=== PATIENT | female | born 1980 | race Hispanic/Latino ===

== ENCOUNTER 2019-03-16 01:03 | Emergency (ER) | payer SELFPAY ==
--- NOTE | ~2019-03-16 | XR_ITS ---
XR elbow LT 2V 03/16/2019 01:56 INDICATION: Left elbow pain for 2 weeks PROCEDURE: 2 view chest COMPARISON: No prior studies for comparison. FINDINGS: Fracture, dislocation or subluxation is not identified. No joint effusion. The soft tissues appear within normal limits. No foreign bodies are identified. IMPRESSION: 1: NO ACUTE BONE OR JOINT ABNORMALITY IDENTIFIED. Reviewed, dictated and finalized at location A. 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
[2019-03-16 01:07] VITALS: BP 145/100; PULSE 112; RESP 20; TEMP 36.5; O2SAT 99
--- NOTE | 2019-03-16 01:22 | ED.UPPEXIN ---
HPI - Extremity Injury (Upper) General Chief Complaint: Extremity Injury, Upper Stated Complaint: L ARM PAIN Time Seen by Provider: 03/16/19 01:07 Source: patient Mode of arrival: ambulatory Limitations: no limitations History of Present Illness HPI narrative: The pt is a 39 y/o female who presents to the ED with c/o constant lt elbow pain that began 2 weeks ago. The pt states that she first noticed the pain when she was trying to pull someone up at work and felt something pop in her lt elbow. She has been having trouble lifting things that are not heavy and has been wrapping her elbow with an JEFF wrap, which helps her pain. The pt took codeine before work tonight with little relief of sx. She states that her pain radiates to her lt shoulder and lt fingers. The pt has a PMHx of asthma. complaint: injury to: elbow (lt elbow pain) Onset (ago): week(s) (2) Relieving factors: other (JEFF wrap) Associated symptoms: other (none) Related Data Home Medications Medication Instructions Recorded Confirmed acetaminophen-codeine 1 tablet 03/16/19 cyclobenzaprine mg 03/16/19 Allergies Allergy/AdvReac Type Severity Reaction Status Date / Time apple Allergy Mild Rash Verified 03/16/19 01:09 [place] Allergy Mild RASH Uncoded 03/16/19 01:09 Review of Systems Review of Systems: All systems reviewed & are unremarkable except as noted in HPI and below Musculoskeletal: Musculoskeletal: Reports other (lt elbow pain) FOR[facility]LY [facility] Past Medical History Medical History (Updated 03/16/19 @ 02:27 by Willian Delgado MD) Asthma Back pain Enlarged liver GERD (gastroesophageal reflux disease) Surgical History Surgical History (Updated 03/16/19 @ 01:59 by Essence Ng) H/O tubal ligation Hx of section Hx of cholecystectomy Family History Family History (Updated 08/21/13 @ 14:35 by DOCTOR UNKNOWN) Other Asthma Social History Social History (Updated 03/16/19 @ 01:59 by Essence Ng) Smoking status: Never smoker Gender identity (if verbalized by the patient): Female Exam Const: General: healthy appearing and no acute distress Limitations: no limitations HENMT: Mouth: Yes lip normal and Yes moist mucous membranes Eyes: Conjunctivae: conjunctivae normal Pupils: Equal, round and reactive pupils present Resp: Effort & Inspection: normal respiratory effort Auscultation: clear to auscultation bilaterally Cardio: Rate: regular rate Rhythm: regular rhythm GI: GI Palp: Yes Soft to palpation and No Tenderness to palpation present (GI) Auscultation: normal bowel sounds Back/Spine/Pelvis: Back: other (full ROM) Skin: General skin exam: normal color, dry skin and other (warm) Neuro: General: patient oriented x3 Speech: normal speech Extrem: General: full ROM Other: tenderness to medial and lateral malleoli over lt elbow with no erythema or swelling Psych: Mental Status: mental status grossly normal Affect: normal affect Course Vital Signs Vital signs: Vital Signs Temperature 36.5 C 03/16/19 01:07 Pulse Rate 112 H 03/16/19 01:07 Respiratory Rate 20 03/16/19 01:07 Blood Pressure 145/100 H 03/16/19 01:07 Pulse Oximetry 99 03/16/19 01:07 Temperature 36.5 C 03/16/19 01:07 Pulse Rate 88 03/16/19 02:34 Respiratory Rate 18 03/16/19 02:34 Blood Pressure 129/77 03/16/19 02:34 Pulse Oximetry 98 03/16/19 02:34 MDM - Extremity Injury (Upper) Imaging Data Attestation: I personally reviewed and interpreted this imaging study as follows: My impression: Negative elbow x-ray Discharge Plan Discharge Clinical Impression: Tendinitis of left elbow Patient Disposition: Home, Self-Care Condition: Stable Instructions: Tendinitis (ED) Prescriptions: New ibuprofen 600 mg tablet 600 mg PO QID PRN (Reason: pain) Qty: 60 RF: 0 methylprednisolone [Medrol (Neftaly)] 4 mg tablets,dose pack See Rx Instructions .ROUTE .COMPLEX Qty: 21 RF: 0
[2019-03-16] MEDS: KETOROLAC (*BKC) 60 MG/2 ML VIAL IM (01:56)
[2019-03-16 02:34] VITALS: BP 129/77; PULSE 88; RESP 18; O2SAT 98
== END 2019-03-16 02:36 | disposition home or self-care (01) ==
PROVIDERS: Emergency Provider Emergency Medicine; PCP Emergency Medicine
DX: J45.909 Unspecified asthma, uncomplicated (principal); K21.9 Gastro-esophageal reflux disease without esophagitis; M77.9 Enthesopathy, unspecified
CPT/HCPCS: 73070; 96372; 99284; J1100; J1885

== ENCOUNTER 2019-06-12 06:13 | Emergency (ER) | payer SELFPAY ==
--- NOTE | ~2019-06-12 | CT_ITS ---
EXAMINATION: CT abdomen pelvis w con DATE: 06/12/2019 08:19 INDICATION: Abdominal pain TECHNIQUE: Computed tomography (CT) of the abdomen and pelvis was performed with 100 cc Omnipaque 350 intravenous contrast. Automated exposure control and iterative reconstruction technique were employe d. Exam dose: 937.59 mGy-cm total exam DLP. COMPARISON: 01/05/2015 CT abdomen pelvis FINDINGS: The lung bases are clear of consolidation. Heart size is within normal range. No pericardia l or pleural effusion. Small sliding hiatal hernia. Diffuse hepatic steatosis. Status post cholecystectomy. No bile duct or pancreatic duct dilatation. No pancreatic mass lesion or calcification. Normal splenic size. Normal morphology of the adrenal glands. Approximately 3.5 mm nonobstructing right renal calculus. 11 mm hypo-enhancing mass of left kidney, not evident on 01/05/2015 noncontrast examination. Consider MR imaging for further evaluation or follow-up CT imaging in 6 months.. No renal space occupying mass lesion is noted otherwise. No ureteral calculus or hydroureteronephrosis. The urinary bladder is unremarkable. The uterus is mil dly enlarged but the uterus and adnexal areas are otherwise unremarkable. Normal caliber of the abdominal aorta. No intraperitoneal or retroperitoneal or pelvic mass lesion, a denopathy or ascites. Normal appendix. No bowel obstruction, bowel wall thickening, pneumatosis or intraperitoneal free air . No suspicious osteolytic or osteoblastic lesions are noted. Diffuse idiopathic skeletal hyperostosis of the lower thoracic spine. IMPRESSION: Small sliding hiatal hernia Diffuse hepatic steatosis Status post cholecystectomy Approximately 3.5 mm nonobstructing right renal calculus Indeterminate 11 mm hypoenhancing mass of left kidney, not evident on 01/05/2015 similar consider MR imaging of the kidney or at minimum a [address] abdomen follow-up Reviewed, dictated and finalized at [facility]. Reviewed, dictated and finalized at location A. IMPRESSION: Small sliding hiatal hernia Diffuse hepatic steatosis Status post cholecystectomy Approximately 3.5 mm nonobstructing right renal calculus Indeterminate 11 mm hypoenhancing mass of left kidney, not evident on 5 similar consider MR imaging of the kidney or at minimum a [address] abdomen follow-up
--- NOTE | ~2019-06-12 | US_ITS ---
EXAMINATION: US right upper quadrant DATE: 06/12/2019 07:39 INDICATION: Abdominal pain. Nausea. TECHNIQUE: Multiple grayscale and Doppler ultrasound images of the abdomen were obtained. COMPARISON: CT abdomen and pelvis 01/05/2015 FINDINGS: The visualized portions of the head, body, and tail of the pancreas are normal. There is di ffuse hepatic steatosis. No liver surface nodularity. There is normal flow in main portal vein. The g allbladder is absent. The common duct is normal and measures 5 mm. IMPRESSION: 1. Diffuse hepatic steatosis. Reviewed, dictated and finalized at location A.
[2019-06-12 06:13] VITALS: BP 140/90; PULSE 110; RESP 16; TEMP 36.4; O2SAT 100
--- NOTE | 2019-06-12 06:29 | ED.ABDPAIN ---
HPI - Abdominal Pain General Chief Complaint: Abdominal Pain Stated Complaint: abd pain Time Seen by Provider: 06/12/19 06:19 Source: RN notes reviewed History of Present Illness HPI narrative: Patient presents to emergency department from home for abdominal pain. Patient states pain is been intermittent for the past week. Pain is located in the right upper quadrant and radiates around to the back. Pain is described as sharp and stabbing associated with nausea and vomiting. Patient states the pain is worse when she eats. Denies any fevers or chills chest pain shortness of breath diarrhea or any other symptoms Related Data Home Medications Medication Instructions Recorded Confirmed cyclobenzaprine 10 mg PO BID 03/16/19 topiramate 25 mg PO HS 06/12/19 06/12/19 Allergies Allergy/AdvReac Type Severity Reaction Status Date / Time apple Allergy Mild Rash Verified 06/12/19 06:28 [place] Allergy Mild RASH Uncoded 06/12/19 06:28 Review of Systems Review of Systems: Narrative: Gen.: Denies fevers or chills ENT: Denies congestion Respiratory: Denies shortness of breath or cough CV: Denies chest pain or palpitations GI: See HPI denies burning, urgency, frequency or hematuria Musculoskeletal: Denies back pain or muscle pain Neuro: Denies numbness, tingling, weakness or focal weakness Skin: Denies rash Except as documented, all other systems reviewed and negative PMFSH Past Medical History Medical History Asthma Back pain Enlarged liver GERD (gastroesophageal reflux disease) Surgical History Surgical History (Updated 03/16/19 @ 01:59 by Essence Ng) H/O tubal ligation Hx of section Hx of cholecystectomy Family History Family History (Updated 08/21/13 @ 14:35 by DOCTOR UNKNOWN) Other Asthma Social History Social History Smoking status: Never smoker Gender identity (if verbalized by the patient): Female Exam Narrative: Exam Narrative: APPEARANCE: No acute distress, nontoxic, resting in bed HEENT: Normocephalic, atraumatic, OMM RESPIRATORY: No respiratory distress, clear to auscultation bilaterally with no rhonchi wheezing or rales CARDIOVASCULAR: RRR s murmur ABDOMINAL: Obese, soft, nondistended, tender palpation epigastric and right upper quadrant, no tenderness right lower quadrant, left lower quadrant left upper quadrant, no rebound or guarding MUSCULOSKELETAl: Moves all extremities. No clubbing, cyanosis or edema. NEURO: Awake and alert. Following commands, speech normal, no focal deficits SKIN:: Warm, dry. Normal Color PSYCHIATRIC: Normal affect/mood Course Course Emergency Course: Called and discussed with Dr. Hernandez patient CT results. Discussed renal mass and will follow as an outpatient Patient states that they are feeling much better at this time. States abdominal pain has resolved. Repeat abdominal exam shows the patient's abdomen to be soft and nontender. Discussed with patient results of workup and diagnosis. Discussed need for follow-up with primary care physician, reasons to return to the emergency department in proper use of medication. Patient understands and agrees to current treatment plan. Discussed renal mass and need for follow-up as an outpatient Vital Signs Vital signs: Vital Signs Temperature 97.6 F 06/12/19 06:13 Pulse Rate 110 H 06/12/19 06:13 Respiratory Rate 16 06/12/19 06:13 Blood Pressure 140/90 06/12/19 06:13 Pulse Oximetry 100 06/12/19 06:13 Temperature 98.1 F 06/12/19 08:55 Pulse Rate 85 06/12/19 08:55 Respiratory Rate 16 06/12/19 06:13 Blood Pressure 131/81 06/12/19 08:55 Pulse Oximetry 100 06/12/19 08:55 MDM - Abdominal Pain MDM Narrative Medical decision making narrative: Patient's abdomen is soft without significant pain or signs of surgical abdomen on serial exams. Lab and x-ray evaluation
[2019-06-12] MEDS: SODIUM CHLORIDE 0.9% IV 1,000 ML 999 ML IV CONT (06:44)
[2019-06-12] MEDS: ONDANSETRON INJ 4 MG/2 ML VIAL IV PUSH (06:46)
[2019-06-12] MEDS: KETOROLAC 30 MG/ML VIAL (*BKC) IV PUSH (06:46)
[2019-06-12 07:02] LABS: Basophils Absolute Auto 0.1 K/mm3 (0.0-0.1); Basophils Percent Auto 0.9 % (0.2-1.2); Eosinophils Absolute Auto 0.4 K/mm3 (0-0.3); Eosinophils Percent Auto 3.2 % (0-4.4); Hematocrit 42.6 % (37.0-47.0); Hemoglobin 14.1 g/dL (12.0-15.0); Immature Granulocyte Absolute 0.19 K/mm3 (0.00-0.031); Immature Granulocyte Percent A 1.4 % (0-0.5); Lymphocytes Absolute Auto 3.83 K/mm3 (0.9-3.2); Lymphocytes Percent Auto 27.5 % (18.3-44.2); Mean Corpuscular HGB Conc 33.1 g/dl (32-36); Mean Corpuscular Hemoglobin 29.7 pg (26-34); Mean Corpuscular Volume 89.7 fl (80-100); Mean Platelet Volume 9.4 fl (7.4-10.4); Monocytes Absolute Auto 0.7 K/mm3 (0.1-0.6); Monocytes Percent Auto 5.2 % (2.6-8.5); Neutrophils Absolute Auto 8.6 K/mm3 (1.3-6.7); Neutrophils Percent Auto 61.8 % (45.5-73.1); Platelet Count Result 535 k/mm3 (150-375); Red Blood Count 4.75 M/mm3 (4.2-5.4); Red Cell Distribution Width 12.5 % (11.5-14.5)
[2019-06-12 07:08] LABS: Add Urine Microscopic? YES; Appearance Urine Clear (Clear); Bacteria Urine Trace /hpf; Bilirubin Urine Negative (Negative); Blood Urine 1+ (Negative); Color Urine Yellow (Yellow); Glucose Urine UA Negative (Negative); Ketones Urine Negative (Negative); Leukocyte Esterase Ur Negative LEU/UL (Negative); Mucus Urine Rare /lpf; Nitrate Urine Negative (Negative); Protein Urine Negative (Negative); RBC Urine 0-2 /hpf (0-2); Specific Grav Ur 1.017 (1.001-1.035); Squamous Epithelial Cell Urine Few /hpf (Few); Urobilinogen Urine Negative mg/dL (<2.0); WBC Urine 0-3 /hpf
[2019-06-12 07:48] LABS: Alanine Aminotransferase 93 U/L (4-35); Albumin Level 4.3 g/dL (3.5-5.1); Alkaline Phosphatase 90 U/L (38-126); Aspartate Amino Transferase 59 U/L (14-36); Bilirubin,Total 0.2 mg/dL (0.2-1.3); Blood Urea Nitrogen 9 mg/dL (7-17); Calcium 9.2 mg/dL (8.4-10.2); Carbon Dioxide 25 mmol/L (22-30); Chloride 106 mmol/L (98-107); Estimated CRCL calculation 126 ml/min; Estimated Glomerular Filt Rate > 60; Glucose 92 mg/dL (65-105); Lipase 58 U/L (23-300); Potassium 4.2 mmol/L (3.4-5.0); Sodium 138 mmol/L (137-145)
[2019-06-12 08:55] VITALS: BP 131/81; PULSE 85; TEMP 36.7; O2SAT 100
[2019-06-12] MEDS: PANTOPRAZOLE SODIUM IV 40 MG VIAL IV PUSH (09:06)
[2019-06-12 09:15] VITALS: BP 136/102; PULSE 97; RESP 16
== END 2019-06-12 09:18 | disposition home or self-care (01) ==
PROVIDERS: Emergency Provider Emergency Medicine; PCP Emergency Medicine
DX: R10.11 Right upper quadrant pain (principal); J45.909 Unspecified asthma, uncomplicated; K21.9 Gastro-esophageal reflux disease without esophagitis; K76.0 Fatty (change of) liver, not elsewhere classified; N20.0 Calculus of kidney; N28.89 Other specified disorders of kidney and ureter
CPT/HCPCS: 36415; 74177; 76705; 80053; 81001; 81025; 83690; 85025; 96361; 96374; 96375; 99284; C9113; J1885; J2405; J7030; Q9967

== ENCOUNTER 2019-07-09 14:23 | Outpatient (CLI) | payer MEDICAID, SELFPAY ==
--- NOTE | ~2019-07-09 | MM_ITS ---
EXAMINATION: MM screening aramis BI w enrrique HISTORY: Screening mammogram TECHNIQUE: Craniocaudal and mediolateral oblique 3-D tomosynthesis images were obtained and synthetic 2-D images were generated. CAD analysis was submitted and interpreted. COMPARISON: No prior mammogram is available for comparison at this institution. BREAST PARENCHYMAL COMPOSITION: The breasts are heterogeneously dense, which may obscure small masses . FINDINGS: There is no evidence of suspicious mass, calcification, or architectural distortion to sugg est malignancy in either breast. There has been no suspicious interval change. IMPRESSION: 1. No mammographic evidence of malignancy. 2. Recommend routine screening mammography in one year. BI-RADS Category 1: Negative Reviewed, dictated and finalized at location A.
== END 2019-07-09 14:24 | disposition home or self-care (01) ==
LOC: ANHIMG 14:26
PROVIDERS: PCP Emergency Medicine; Visit Provider Emergency Medicine
DX: Z12.31 Encounter for screening mammogram for malignant neoplasm of breast (principal)
CPT/HCPCS: 77063; 77067

== ENCOUNTER 2019-07-29 19:32 | Outpatient (CLI) | payer MEDICAID, SELFPAY ==
--- NOTE | ~2019-07-29 | MR_ITS ---
EXAMINATION: MR abdomen wo/w con INDICATION: Left kidney lesion TECHNIQUE: Coronal SSFSE ARC, WATER:coronal LAVA-FLEX, Coronal 2D FIESTA FatSat, Axial SSFSE BH ARC, Axial 3D DualEcho BH, Axial SSFSE-IR, Axial DWI b=500, Axial 2D FIESTA FatSat, pre and dynamic postco ntrast Axial LAVA ARC, postcontrast Coronal In and Opposed phase LAVA FLEX COMPARISON: CT, 06/12/2019 CONTRAST: Multihance, 18 cc FINDINGS: There is an 11 mm T1 hypointense, T2 hyperintense, nonenhancing lesion in the left kidney u pper pole, consistent with a simple cyst. No suspicious renal mass is identified. There is loss of he patic parenchymal signal on opposed phase imaging, consistent with hepatic steatosis. The spleen, caceres creas, and adrenal glands are normal. The gallbladder is surgically absent. There are no dilated loop s of bowel. No pathologically enlarged abdominal lymph nodes are identified. IMPRESSION: 1. Simple cyst of the left kidney corresponding to the indeterminate lesion on recent CT. No suspicio us renal mass identified. 2. Diffuse hepatic steatosis. Reviewed, dictated and finalized at location F. IMPRESSION: 1. Simple cyst of the left kidney corresponding to the indeterminate lesion on recent CT. No suspicious renal mass identified. 2. Diffuse hepatic steatosis.
--- NOTE | ~2019-07-29 | MR_ITS ---
EXAMINATION: MR brain/brain stem wo con DATE: 07/29/2019 20:09 INDICATION: 3 years generalized headaches TECHNIQUE: Magnetic resonance imaging (MRI) of the brain and brainstem was performed without intraven ous contrast. Sequences included sagittal and axial T1-weighted SE, axial diffusion-weighted FS SE, a xial T2*-weighted GRE, axial T2-weighted FLAIR, and axial T2-weighted FSE. Apparent diffusion coeffic ient (ADC) maps were created. COMPARISON: None. FINDINGS: There are no areas of restricted diffusion to suggest acute infarction. No intracranial hemorrhage or abnormal intracranial mass lesion. There are no intraparenchymal signal abnormalities seen on the ot her pulse sequences. The ventricles are symmetric and normal in size. There are no abnormal extra-axi al fluid collections. Flow voids are seen in the cerebral arteries on the T2-weighted sequences consi stent with their expected patency. Mucosal thickening in the right frontal, bilateral ethmoid and max illary sinuses. Visualized orbits and soft tissues are unremarkable. IMPRESSION: 1. Normal brain. No acute intracranial process. 2. Sinus disease. Reviewed, dictated and finalized at location A.
[2019-07-29 20:22] LABS: Estimated Glomerular Filt Rate > 60
== END 2019-07-29 19:33 | disposition home or self-care (01) ==
PROVIDERS: PCP Emergency Medicine; Visit Provider Emergency Medicine
DX: K76.0 Fatty (change of) liver, not elsewhere classified (principal); N28.1 Cyst of kidney, acquired; J32.9 Chronic sinusitis, unspecified
CPT/HCPCS: 36415; 70551; 74183; A9577

== ENCOUNTER 2019-11-06 18:15 | Emergency (ER) | payer OTHER, SELFPAY ==
--- NOTE | ~2019-11-06 | XR_ITS ---
EXAMINATION: XR chest 1V portable INDICATION: Shortness of breath, COVID 19 positive TECHNIQUE: Portable AP chest at 1922 hours COMPARISON: 02/08/2012 FINDINGS: The lung volumes are low. No definite airspace opacities are identified. There is no pleura l effusion or pneumothorax. The cardiomediastinal silhouette is normal. Surgical clips in the right u pper quadrant are likely from prior cholecystectomy. IMPRESSION: 1. No acute cardiopulmonary abnormality. Reviewed, dictated and finalized at location A.
[2019-11-06 18:40] VITALS: BP 139/85; PULSE 81; RESP 15; TEMP 37; O2SAT 99
[2019-11-06 18:44] VITALS: PULSE 88
[2019-11-06 18:46] VITALS: BP 139/93; PULSE 75; RESP 13; O2SAT 99
--- NOTE | 2019-11-06 18:58 | ECG_ITS ---
Measurements Intervals [place] Rate: 77 P: -2 NE: 180 QRS: -5 QRSD: 83 T: 1 QT: 352 QTc: 399 Interpretive Statements SINUS RHYTHM LOW QRS VOLTAGE IN PRECORDIAL LEADS BORDERLINE R WAVE PROGRESSION, ANTERIOR LEADS BORDERLINE ST-T WAVE ABNORMALITY- ANTEROLAT/INF LEADS BASELINE WANDER- III, AVR, AVF, V1, V4-V6 BORDERLINE ECG Electronically Signed On 11-07-2019 6:48:11 CDT by Elvis Robertson D.O.
--- NOTE | 2019-11-06 19:03 | ED.SOB ---
HPI - SOB/Dyspnea General Chief Complaint: Shortness of Breath/Dyspnea <LORENZO Gabriel Last Filed: 11/06/19 21:27> Stated Complaint: covid+, sob <LORENZO Gabriel Last Filed: 11/06/19 21:27> Time Seen by Provider: 11/06/19 18:35 <LORENZO Gabriel Last Filed: 11/06/19 21:27> Source: patient <LORENZO Gabriel Last Filed: 11/06/19 21:27> Mode of arrival: ambulatory <LORENZO Gabriel Last Filed: 11/06/19 21:27> Limitations: no limitations <LORENZO Gabriel Last Filed: 11/06/19 21:27> History of Present Illness HPI Narrative: This is a 39-year-old female that presents to the emergency department for shortness of breath x1 week. Associated with cough, myalgias and headache. Also reports chest pain with coughing. 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 Reports she tested positive on the . Denies fever. <LORENZO Gabriel Last Filed: 11/06/19 21:27> Related Data Home Medications: Home Medications Medication Instructions Recorded Confirmed cyclobenzaprine 10 mg PO BID 03/16/19 topiramate 25 mg PO HS 06/12/19 06/12/19 <LORENZO Gabriel Last Filed: 11/06/19 21:27> Allergies/Adverse Reactions: Allergies Allergy/AdvReac Type Severity Reaction Status Date / Time apple Allergy Mild Rash Verified 06/12/19 06:28 [place] Allergy Mild RASH Uncoded 06/12/19 06:28 <LORENZO Gabriel Last Filed: 11/06/19 21:27> Review of Systems Review of Systems: Narrative: CONSTITUTIONAL: Denies fever ENT: Reports congestion. Denies sore throat, or otalgia. CARDIOVASCULAR: Reports chest pain RESPIRATORY: Reports cough and dyspnea. MUSCULOSKELETAL: Reports back pain, and myalgia. <LORENZO Gabriel Last Filed: 11/06/19 21:27> All systems reviewed & are unremarkable except as noted in HPI and below <LORENZO Gabriel Last Filed: 11/06/19 21:27> [facility] Surgical History Surgical History: Surgical History (Updated 03/16/19 @ 01:59 by Essence Ng) H/O tubal ligation Hx of section Hx of cholecystectomy <Rochelle Perea PA-C - Last Filed: 11/06/19 21:27> Family History Family History: Family History (Updated 08/21/13 @ 14:35 by DOCTOR UNKNOWN) Other Asthma <LORENZO Gabriel Last Filed: 11/06/19 21:27> Social History Social History: Social History Smoking status: Never smoker Gender identity (if verbalized by the patient): Female <LORENZO Gabriel Last Filed: 11/06/19 21:27> Exam Narrative: Exam Narrative: GENERAL: Well-appearing, obese, and in no acute distress. HEAD: Normocephalic, atraumatic. EYES: EOMI. ENT: Nares clear, no rhinorrhea or epistaxis. Mucous membranes moist. Oropharynx without tonsillar hypertrophy exudate or other lesions. Bilateral TMs pearly fitzgerald non-bulging NECK: Supple. No adenopathy or masses. CHEST: Clear to auscultation. No respiratory distress. No wheezes rales or rhonchi HEART: Regular rate and rhythm. No murmur heard. Normal peripheral pulses. EXTREMITIES: Normal range of motion. No edema. SKIN: Warm, dry, no rash. NEURO: No focal deficits. Alert and oriented x3. PSYCH: Normal mood and affect <LORENZO Gabriel Last Filed: 11/06/19 21:27> Course Vital Signs Vital signs: Vital Signs Temperature 37.0 C 11/06/19 18:40 Pulse Rate 81 11/06/19 18:40 Respiratory Rate 15 11/06/19 18:40 Blood Pressure 139/85 11/06/19 18:40 Pulse Oximetry 99 11/06/19 18:40 Temperature 37.0 C 11/06/19 18:40 Pulse Rate 88 11/06/19 20:50 Respiratory Rate 16 11/06/19 20:50 Blood Pressure 122/98 H 11/06/19 20:50 Pulse Oximetry 99 11/06/19 20:50 <Rochelle Perea PA-C - Last Filed: 11/06/19 21:27> Vital Signs Temperature 37.0 C 11/06/19 18:40 Pulse Rate 81 11/06/19 18:40 Respirat
[2019-11-06 19:15] VITALS: BP 131/83; PULSE 75; RESP 16; O2SAT 98
[2019-11-06] MEDS: ALBUTEROL SULFATE (*SP) AEROSOL 1 PUFF 2 PUFF INHALATION (19:19)
[2019-11-06 19:22] VITALS: PULSE 77; RESP 20
[2019-11-06 19:41] LABS: Basophils Absolute Auto 0.1 K/mm3 (0.0-0.1); Basophils Percent Auto 0.7 % (0.2-1.2); Eosinophils Absolute Auto 0.5 K/mm3 (0-0.3); Eosinophils Percent Auto 4.4 % (0-4.4); Hematocrit 42.2 % (37.0-47.0); Hemoglobin 14.4 g/dL (12.0-15.0); Immature Granulocyte Absolute 0.16 K/mm3 (0.00-0.031); Immature Granulocyte Percent A 1.4 % (0-0.5); Lymphocytes Percent Auto 33.8 % (18.3-44.2); Mean Corpuscular HGB Conc 34.1 g/dl (32-36); Mean Corpuscular Hemoglobin 29.4 pg (26-34); Mean Corpuscular Volume 86.1 fl (80-100); Monocytes Absolute Auto 0.8 K/mm3 (0.1-0.6); Monocytes Percent Auto 6.6 % (2.6-8.5); Neutrophils Absolute Auto 6.3 K/mm3 (1.3-6.7); Neutrophils Percent Auto 53.1 % (45.5-73.1); Platelet Count Result 523 k/mm3 (150-375); Red Cell Distribution Width 12.6 % (11.5-14.5); White Blood Count 11.9 K/mm3 (4.5-10.0)
[2019-11-06 19:51] LABS: Prothrombin Time 12.5 Seconds (11.1-14.7)
[2019-11-06 19:52] LABS: Partial Thromboplastin Time 28.6 SECONDS (22.3-36.8)
[2019-11-06 19:53] LABS: Alanine Aminotransferase 108 U/L (4-35); Albumin Level 4.4 g/dL (3.5-5.1); Alkaline Phosphatase 85 U/L (38-126); Anion Gap 8 mmol/L (8-16); Aspartate Amino Transferase 74 U/L (14-36); Bilirubin,Total 0.5 mg/dL (0.2-1.3); Blood Urea Nitrogen 10 mg/dL (7-17); Calcium 10.9 mg/dL (8.4-10.2); Carbon Dioxide 28 mmol/L (22-30); Chloride 103 mmol/L (98-107); Estimated CRCL calculation 110 ml/min; Estimated Glomerular Filt Rate > 60; Glucose 116 mg/dL (65-105); Lactate Dehydrogenase 534 U/L (313-618); Lactic Acid Reflex 1.3 mmol/L (0.7-2.1); Potassium 4.3 mmol/L (3.4-5.0); Sodium 139 mmol/L (137-145)
[2019-11-06 19:58] LABS: D Dimer 0.27 ug/mL (<0.48)
[2019-11-06 20:06] LABS: Troponin I < 0.012 ng/mL (0.000-0.034)
[2019-11-06 20:50] VITALS: BP 122/98; PULSE 88; RESP 16; O2SAT 99
== END 2019-11-06 21:36 | disposition home or self-care (01) ==
PROVIDERS: Physician Assistant; Emergency Provider Emergency Medicine
DX: U07.1 COVID-19 (principal); R94.31 Abnormal electrocardiogram [ECG] [EKG]
CPT/HCPCS: 36415; 71045; 80053; 82728; 83605; 83615; 84484; 85025; 85380; 85610; 85730; 93005; 99284; A9270

== ENCOUNTER 2022-01-20 19:51 | Emergency (ER) | payer OTHER, SELFPAY ==
--- NOTE | ~2022-01-20 | CT_ITS ---
EXAMINATION: CT abdomen pelvis wo con DATE: 01/21/2022 02:33 INDICATION: Urinary urgency and right flank pain radiating into the groin TECHNIQUE: Computed tomography (CT) of the abdomen and pelvis was performed without intravenous contr ast. Automated exposure control and iterative reconstruction technique were employed. The dose-length product was 1122.67 mGy-cm. COMPARISON: 06/12/2019 FINDINGS: Mild right middle lobe and lingular atelectasis. Heart size is normal. No pericardial or pleural effu herbie. Diffuse hepatic steatosis. Cholecystectomy clips the gallbladder fossa. Spleen, pancreas and bi lateral adrenal glands are normal. Bilateral nephrolithiasis with 3 nonobstructing stones in the left kidney and 2 right renal stones, one measuring 2 mm a lower pole calyx and a 9 mm obstructing stone at the right ureteropelvic junction. This results in mild right hydronephrosis. No ureteral stones. B owels including the appendix are normal. Bladder, uterus and adnexa are unremarkable. No free intrape ritoneal gas or fluid. No pathologically enlarged abdominal or pelvic lymphadenopathy. Bones are unre markable. IMPRESSION: 1. Bilateral nephrolithiasis with obstructing 9 mm stone at the right ureteropelvic junction with mil d hydronephrosis. Reviewed, dictated and finalized at location A. 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 Bilateral nephrolithiasis with obstructing 9 mm stone at the right ureterope lvic junction with mild hydronephrosis.
--- NOTE | ~2022-01-20 | XR_ITS ---
EXAMINATION: XR abdomen/kub 1V DATE: 01/21/2022 04:57 INDICATION: Right UPJ stone TECHNIQUE: A supine view of the abdomen on 2 radiographs was obtained. COMPARISON: CT dated 01/21/2022 FINDINGS: Bilateral nephrolithiasis with 10 mm stone at the right ureteropelvic junction. Additional 2 mm stone at a lower pole of the right kidney and 2 mm and 3 mm stones at the mid and lower left kidney respec tively. An additional 1 mm stone seen on CT at the lower pole of the left kidney is too small to visu nathalia. There are few phleboliths in the pelvis. Normal bowel gas pattern. Lung bases are clear. Heart size is normal. Cholecystectomy clips in the right upper quadrant. IMPRESSION: 1. Bilateral nephrolithiasis including the previously noted 9 mm obstructing stone at the right urete ropelvic junction. Reviewed, dictated and finalized at location A. ORATE TUTOR IMPRESSION: 1. Bilateral nephrolithiasis including the previously noted [address] one at the right ureteropelvic junction.
[2022-01-20 19:54] VITALS: BP 163/95; PULSE 104; RESP 16; TEMP 36.3; O2SAT 98
[2022-01-20 20:19] LABS: Basophils Absolute Auto 0.1 K/mm3 (0.0-0.1); Basophils Percent Auto 0.9 % (0.2-1.2); Eosinophils Absolute Auto 0.4 K/mm3 (0-0.3); Eosinophils Percent Auto 3.4 % (0-4.4); Hematocrit 43.8 % (37.0-47.0); Hemoglobin 14.5 g/dL (12.0-15.0); Immature Granulocyte Absolute 0.11 K/mm3 (0.00-0.031); Immature Granulocyte Percent A 0.9 % (0-0.5); Lymphocytes Absolute Auto 3.01 K/mm3 (0.9-3.2); Lymphocytes Percent Auto 23.6 % (18.3-44.2); Mean Corpuscular HGB Conc 33.1 g/dl (32-36); Mean Corpuscular Hemoglobin 29.5 pg (26-34); Mean Platelet Volume 8.4 fl (7.4-10.4); Monocytes Absolute Auto 0.9 K/mm3 (0.1-0.6); Monocytes Percent Auto 7.1 % (2.6-8.5); Neutrophils Absolute Auto 8.2 K/mm3 (1.3-6.7); Neutrophils Percent Auto 64.1 % (45.5-73.1); Platelet Count Result 569 k/mm3 (150-375); Red Blood Count 4.92 M/mm3 (4.2-5.4); Red Cell Distribution Width 12.9 % (11.5-14.5); White Blood Count 12.8 K/mm3 (4.5-10.0)
[2022-01-20 20:25] LABS: Appearance Urine Clear (Clear); Bilirubin Urine Negative (Negative); Blood Urine 2+ (Negative); Color Urine Yellow (Yellow); Glucose Urine UA Negative (Negative); Ketones Urine Negative (Negative); Leukocyte Esterase Ur 1+ LEU/UL (Negative); Nitrate Urine Negative (Negative); Protein Urine 1+ mg/dL (Negative); Specific Grav Ur 1.015 (1.001-1.035); Urobilinogen Urine 0.2 mg/dL (<2.0); pH Urine 7.5 (5.0-9.0)
[2022-01-20 20:28] LABS: Alanine Aminotransferase 86 U/L (6-35); Albumin Level 4.6 g/dL (3.5-5.1); Alkaline Phosphatase 92 U/L (38-126); Anion Gap 7 mmol/L (8-16); Aspartate Amino Transferase 87 U/L (14-36); Bilirubin,Total 0.3 mg/dL (0.2-1.3); Blood Urea Nitrogen 9 mg/dL (7-17); Calcium 8.7 mg/dL (8.4-10.2); Carbon Dioxide 26 mmol/L (22-30); Chloride 103 mmol/L (98-107); Estimated Glomerular Filt Rate > 60; Glucose 131 mg/dL (65-110); Lipase 73 U/L (23-300); Potassium 3.8 mmol/L (3.4-5.0); Sodium 136 mmol/L (137-145)
[2022-01-20 20:34] LABS: Add Urine Microscopic? YES; Mucus Urine Rare /lpf; RBC Urine >75 /hpf (0-2); Squamous Epithelial Cell Urine Moderate /hpf (Few); WBC Urine 16-20 /hpf
[2022-01-21] VITALS (28 sets, daily range): BP systolic 113–154; BP diastolic 71–113; O2SAT 94–100
--- NOTE | 2022-01-21 01:49 | ED.ABDPAIN ---
HPI - Abdominal Pain General Chief Complaint: Abdominal Pain Stated Complaint: flank pain Time Seen by Provider: 01/21/22 01:39 History of Present Illness HPI narrative: Patient is a 42-year-old female who presents to the ER with right flank pain. Began this afternoon. Sharp and radiates around into the lower abdomen. She feels like she is urinating very frequently. No dysuria. She began having some nausea 1 hour ago but no vomiting. No history of kidney stones. No alleviating factors. She is not on her period. Related Data Home Medications Medication Instructions Recorded Confirmed amitriptyline 10 mg tablet 10 mg PO QHS 04/13/20 04/13/20 codeine sulfate 15 mg tablet 15 mg PO Q8H PRN 04/13/20 04/13/20 Allergies Allergy/AdvReac Type Severity Reaction Status Date / Time apple Allergy Mild Rash Verified 06/12/19 06:28 [place] Allergy Mild RASH Uncoded 06/12/19 06:28 Review of Systems Review of Systems: All systems reviewed & are unremarkable except as noted in HPI and below Constitutional: Constitutional: Denies chills, Denies fatigue and Denies fever(s) Cardiovascular: Cardiovascular: Denies chest pain and Denies rapid heart rate Respiratory: Respiratory: Denies cough and Denies dyspnea Gastrointestinal: Gastrointestinal: Reports abdominal pain, Denies diarrhea, Reports nausea and Denies vomiting Genitourinary: Genitourinary: Denies abnormal vaginal bleeding, Denies hematuria, Reports nocturia, Denies dysuria and Reports flank pain Musculoskeletal: Musculoskeletal: Reports back pain PMFSH Past Medical History Medical History (Updated 01/21/22 @ 04:27 by Juno Cruz MD) Asthma Back pain Enlarged liver GERD (gastroesophageal reflux disease) Ulnar nerve entrapment Surgical History Surgical History (Updated 04/13/20 @ 11:19 by Annette Adrian CMA) H/O elbow surgery Right 10/2019 H/O tubal ligation Hx of section Hx of cholecystectomy Family History Family History (Updated 04/13/20 @ 11:11 by Annette Adrian CMA) Mother Asthma Sibling Asthma Social History Social History (Updated 04/13/20 @ 11:19 by Annette Adrian CMA) Smoking status: Never smoker Alcohol intake: former Gender identity (if verbalized by the patient): Female Exam Narrative: GENERAL: Well-appearing, well-nourished, and in no acute distress. HEAD: Normocephalic, atraumatic. EYES: PERRL and EOMI. ENT: Mucous membranes moist. CHEST: Clear to auscultation. No respiratory distress. HEART: Regular rate and rhythm. Normal peripheral pulses. ABDOMEN: Soft, nontender, nondistended, mild right CVA tenderness. EXTREMITIES: Normal range of motion. No edema. SKIN: Warm, dry, no rash. NEURO: Alert and oriented x3. PSYCH: Normal mood and affect. Course Vital Signs Vital signs: Vital Signs Temperature 97.3 F L 01/20/22 19:54 Pulse Rate 104 H 01/20/22 19:54 Respiratory Rate 16 01/20/22 19:54 Blood Pressure 163/95 H 01/20/22 19:54 Pulse Oximetry 98 01/20/22 19:54 Oxygen Delivery Room Air 01/20/22 19:54 Temperature 97.3 F L 01/20/22 19:54 Pulse Rate 104 H 01/20/22 19:54 Respiratory Rate 16 01/20/22 19:54 Blood Pressure 163/95 H 01/20/22 19:54 Pulse Oximetry 98 01/20/22 19:54 Oxygen Delivery Room Air 01/20/22 19:54 MDM - Abdominal Pain Lab Data 01/20/22 20:10 01/20/22 20:10 Labs: Lab Results 01/20/22 01/20/22 01/20/22 Range/Units 20:10 20:10 20:10 WBC 12.8 H (4.5-10.0) K/mm3 RBC 4.92 (4.2-5.4) M/mm3 Hgb 14.5 (12.0-15.0) g/dL Hct 43.8 (37.0-47.0) % MCV 89.0 (80-100) fl MCH 29.5 (26-34) pg MCHC 33.1 (32-36) g/dl RDW 12.9 (11.5-14.5) % Plt Count 569 H (150-375) k/mm3 MPV 8.4 (7.4-10.4) fl Immature Gran % (Auto) 0.9 H (0-0.5) % Neut % (Auto) 64.1 (45.5-73.1) % Lymph % (Auto) 23.6 (18.3-44.2) % Richardson % (Auto) 7.1 (2.6-8.5) % Eos % (Auto) 3.
[2022-01-21] MEDS: ONDANSETRON INJ 4 MG/2 ML VIAL IV PUSH (02:20)
[2022-01-21] MEDS: SODIUM CHLORIDE 0.9% IV 1,000 ML 999 ML IV CONT (02:20)
[2022-01-21] MEDS: MORPHINE SULFATE (*CRX) 4 MG/ML INJ IV PUSH ×2 (02:22→04:16)
== END 2022-01-21 05:52 | disposition home or self-care (01) ==
PROVIDERS: Emergency Provider Emergency Medicine; PCP Internal Medicine
DX: N13.2 Hydronephrosis with renal and ureteral calculous obstruction (principal); J45.909 Unspecified asthma, uncomplicated; K21.9 Gastro-esophageal reflux disease without esophagitis
CPT/HCPCS: 36415; 74018; 74176; 80053; 81001; 83690; 85025; 87086; 96361; 96374; 96375; 96376; 99284; J2270; J2405; J7030